=== PATIENT | female | born 1950 | race Caucasian/White ===

== ENCOUNTER 2017-01-03 08:52 | Day surgery (SDC) | payer OTHER ==
[2017-01-01 12:36] VITALS: BMI 27.3
[~2017-01-03 08:52] MED LIST: LACTATED RINGERS 1,000 ML IV SCH
[2017-01-03 10:15] VITALS: TEMP 97.9
[2017-01-03] MEDS ORDERED: LIDOCAINE 1% 20 ML VIAL (10MG/ML) FOR IV START INTRADERMA ONE (10:15)
[2017-01-03] MEDS ORDERED: ONDANSETRON 4 MG/2 ML VIAL IVP ONE (10:16)
[2017-01-03] MEDS ORDERED: PROPOFOL 10 MG/ML 20 ML VIAL IV ONE (10:32)
--- NOTE | 2017-01-03 10:57 | P.PCN ---
Date of Procedure: 01/03/17 Preoperative Diagnosis: Postoperative Diagnosis: Procedure(s) Performed: Brief history: Patient is a pleasant 66-year-old white female, scheduled for an elective upper endoscopy as well as colonoscopy as a part of evaluation of long-standing history of GERD and family history of colon cancer. Her brother was diagnosed with colon cancer at age 40. Procedure performed: Esophagogastroduodenoscopy with biopsy Colonoscopy Preoperative diagnosis: GERD Screening for colon cancer/family history of colon cancer. Anesthesia: MAC Procedure: After informed consent was obtained from the patient was brought into the endoscopy unit and IV sedation was administered by anesthesia under continuous monitoring. Initially upper endoscopy was done. The Olympus GF 160 video endoscope was inserted inserted into the mouth and esophagus intubated without any difficulty and was gradually advanced into the stomach and duodenum and carefully examined. The bulb and second part of the duodenum appeared normal. The scope was then withdrawn into the stomach adequately insufflated with air and upon careful examination the antrum had mild mottling of the mucosa and biopsies were done from this area. The body, cardia and fundus appeared normal. small gastric polyps were identified in the body of the stomach which were also biopsied. The scope was then withdrawn into the esophagus. The GE junction was located at 40 cm to the incisors. It appeared regular with no erythema erosions or ulcerations. Rest of the esophagus appeared normal. Patient tolerated the procedure well. At this time the patient continued to remain sedation. Initial digital rectal examination was normal. Olympus CF 160 video colonoscope was then inserted into the rectum and gradually advanced to the cecum without any difficulty. Careful examination was performed as the scope was gradually being withdrawn. The prep was excellent. The cecum, ascending colon, transverse colon, descending colon, sigmoid colon and rectum appeared normal. Scattered diffuse diverticulosis seen. Retroflexion was performed in the rectum and no lesions were noted. Patient tolerated the procedure well. Impression: 1. Upper endoscopy revealed mild antral gastritis and small gastric polyps 2. Colonoscopy revealed scattered diffuse diverticulosis but no evidence of colorectal neoplasia. Recommendations: Findings of this examination were discussed with the patient as well as her family. She was advised to follow with the biopsy results. She will continue with her current medications and follow antireflux measures. She was advised to have a repeat screening colonoscopy in 5 years because of family history of colon cancer. Implants: Indications for Procedure: Operative Findings: Description of Procedure:
[2017-01-03 12:09] VITALS: BP 137/72; PULSE 60; RESP 16
== END 2017-01-03 12:33 | disposition home or self-care (01) ==
LOC: ORWHC2ENDO 08:52
PROVIDERS: ATTEND Internal Medicine Gastroenterology
DX: Z12.11 Encounter for screening for malignant neoplasm of colon (principal); K31.7 Polyp of stomach and duodenum; K57.30 Diverticulosis of large intestine without perforation or abscess without bleeding; Z80.0 Family history of malignant neoplasm of digestive organs; K21.9 Gastro-esophageal reflux disease without esophagitis; K29.50 Unspecified chronic gastritis without bleeding; I10 Essential (primary) hypertension; J44.9 Chronic obstructive pulmonary disease, unspecified; Z79.51 Long term (current) use of inhaled steroids; Z79.899 Other long term (current) drug therapy
CPT/HCPCS: 88305; 88342; 43239; J2405; J2704; G0105

== ENCOUNTER 2021-07-06 07:18 | Day surgery (SDC) | payer MEDICARE, OTHER ==
[~2021-07-06 07:18] MED LIST changes: +LIDOCAINE 1% (10MG/ML) FOR IV START INTRADERMA PRN
[2021-07-06 07:44] VITALS: TEMP 97.5
[2021-07-06] MEDS ORDERED: LIDOCAINE 1% INJ 10MG/ML (20 ML MDV) ONE (08:07)
[2021-07-06] MEDS ORDERED: PROPOFOL 10 MG/ML 20 ML VIAL IV ONE (08:07)
--- NOTE | 2021-07-06 08:35 | P.PCN ---
Date of Procedure: 07/06/21 Procedure(s) Performed: BRIEF HISTORY: Patient is a 71-year-old, pleasant, female scheduled for an upper endoscopy as a part of last of long-standing history of GERD and intermittent dysphagia to solids. She is a having worsening chronic cough and hoarseness for the last several months duration despite being on Prilosec 20 mg daily. With biopsy. PROCEDURE PERFORMED: Esophagogastroduodenoscopy with biopsy. PREOPERATIVE DIAGNOSIS: Long-standing history of GERD/chronic hoarseness and intermittent dysphagia to solids. IV sedation per anesthesia. PROCEDURE: After informed consent was obtained, the patient was brought into the endoscopy unit. IV sedation was administered by Anesthesia under continuous monitoring. Initially the Olympus GIF-140 video endoscope was inserted into the mouth. Esophagus intubated without any difficulty. It was gradually advanced into the stomach and duodenum and carefully examined. The bulb and the second part of the duodenum appeared normal. The scope at this time was withdrawn to the stomach, adequately insufflated with air, and upon careful examination, muco sa of the antrum, body, cardia and the fundus appeared normal. The scope was then withdrawn into the esophagus. The GE junction was located at 39 cm from the incisors. Small sliding type hiatal hernia noted. The rest of the esophagus appeared normal. There were no erosions or ulcerations seen, no evidence of esophageal stricture. There was a 2 mm polyp noted in the proximal esophagus which was biopsied. and the patient tolerated the procedure well. IMPRESSION: 1. Small hiatal hernia. 2. 2-3 mm proximal esophageal polyp status post biopsy 3. No evidence of esophageal stricture. RECOMMENDATIONS: The findings of this examination were discussed with the patient as well as her family. She was advised to follow with the biopsy results. She was advised to increase omeprazole to 20 mg twice daily half hour before breakfast and dinnertime for 8 weeks and follow antireflux measures.
[2021-07-06 08:45] VITALS: BP 138/69; PULSE 52; RESP 16
== END 2021-07-06 09:02 | disposition home or self-care (01) ==
LOC: ORWHC2ENDO 07:18
PROVIDERS: ATTEND Internal Medicine Gastroenterology
DX: K21.9 Gastro-esophageal reflux disease without esophagitis (principal); D13.0 Benign neoplasm of esophagus; E78.5 Hyperlipidemia, unspecified; I10 Essential (primary) hypertension; G47.33 Obstructive sleep apnea (adult) (pediatric); J44.9 Chronic obstructive pulmonary disease, unspecified; Z85.828 Personal history of other malignant neoplasm of skin; Z79.899 Other long term (current) drug therapy
CPT/HCPCS: 43239; J2001; J2704; 88305